=== PATIENT | female | born 1990 | race Caucasian/White ===

== ENCOUNTER → 2016-03-08 | Outpatient (CLI) | payer OTHER | END | disposition home or self-care (01) | LOC: C.PATHSPEC 17:34 | PROVIDERS: ATTEND Obstetrics & Gynecology | DX: N87.1 Moderate cervical dysplasia (principal) ==

== ENCOUNTER → 2017-02-22 | Outpatient (CLI) | payer OTHER | END | disposition home or self-care (01) | LOC: C.PAPS 17:43 | PROVIDERS: ATTEND Obstetrics & Gynecology | DX: D06.9 Carcinoma in situ of cervix, unspecified (principal) ==

== ENCOUNTER → 2017-02-22 | Outpatient (CLI) | payer OTHER | END | disposition home or self-care (01) | LOC: C.LABSPEC 17:42 | PROVIDERS: ATTEND Obstetrics & Gynecology | DX: N89.8 Other specified noninflammatory disorders of vagina (principal) ==